=== PATIENT | male | born 1960 | race Caucasian/White ===

== ENCOUNTER → 2017-02-10 | Outpatient (REF) | LOC: ZLAB.WCH 18:01 | DX: Z01.89 Encounter for other specified special examinations (principal) | CPT/HCPCS: G0103 ==

== ENCOUNTER 2017-11-03 11:30 | Outpatient (RCR) | payer OTHER | END 2017-11-03 13:02 | disposition home or self-care (01) | LOC: WSC 11:30 | DX: M47.816 Spondylosis without myelopathy or radiculopathy, lumbar region (principal) ==